=== PATIENT | male | born 1940 | race Caucasian/White ===

== ENCOUNTER 2023-07-07 06:34 | Inpatient (IN) | payer MEDICARE, BC, SELFPAY ==
--- NOTE | 2023-05-24 11:28 | CM ---
Patient is scheduled for an elective R TKR on 07/07/23. Spoke with patient prior to surgery via telephone. Introduced role of Orthopedic Navigator. Patient reports that he lives with his in a two story home. There are two steps to enter and
patient has a first floor set up. He currently functions independently. He has a cane, rolling walker and raised toilet seat. He has never had VN services. PCP is Dr. Paxton Hawkins.
Discussed orthopedic program and post surgical plans. Reviewed anticipated length of stay and that goal is for him to return home at discharge. Also reviewed outpatient PT. Patient is in agreement with tentative plan and will go directly to
outpatient PT at [facility]. He will have support from his when he goes home.
Patient will complete online education.
Plan: Orthopedic Navigator will remain available to assist with the care of patient and will reassess discharge needs after surgery.
[2023-06-21 13:33] VITALS: BMI 32.3
[2023-06-21 14:35] LABS: Hematocrit 31.8 % (39.0-52.0); Hemoglobin 10.8 g/dL (13.0-18.0); Mean Corpuscular Volume 91.4 fL (80.0-94.0); Mean Platelet Volume 12.1 fL (7.4-10.4); Platelet Count 207 10^3/uL (130-400); Red Blood Cell Count 3.48 10^6/uL (4.70-6.10); Red Cell Dist. Width 14.7 % (11.5-14.5)
[2023-06-21 14:49] LABS: Glycohemoglobin (HgbA1c) 5.9 % (4.0-5.6)
[2023-06-21 14:57] LABS: ALT (SGPT) 22 U/L (0-50); AST (SGOT) 23 U/L (17-59); Albumin 3.9 g/dl (3.5-5.0); Alkaline Phosphatase 71 U/L (38-126); Blood Urea Nitrogen 29 mg/dl (9-20); Calcium 8.8 mg/dl (8.4-10.2); Carbon Dioxide 28 mmol/L (22-30); Chloride 104 mmol/L (98-107); Estimated Creatinine Clearance 35 ml/min; Glucose 121 mg/dl (70-99); Potassium 4.2 mmol/L (3.5-5.1); Sodium 140 mmol/L (135-145); Total Bilirubin 0.5 mg/dl (0.2-1.3); eGFR 39.51
[2023-06-30 10:52] VITALS: BMI 32.3
[2023-07-07] VITALS (12 sets, daily range): BP systolic 103–156; BP diastolic 47–71; PULSE 52; O2SAT 97; BMI 32.3
[2023-07-07] MEDS: TYLENOL 650 MG PO (08:33)
[2023-07-07] MEDS: NORMOSOL-R 1000 IV (08:34)
[2023-07-07 08:37] LABS: INR 1.11; PT 14.3 Sec (11.4-14.6)
--- NOTE | 2023-07-07 11:53 | W.PN.ORTHO ---
Today's Communication / Plan
-
D/c when clinically stable.
Assessment
.
Distal Motor Intact: Yes
Dressing:
Clean, dry and intact.
Assessment:
R knee OA s/p R TKA w/ Dr Callaway 07/07/23
DVT prophylaxis - Warfarin w/ modified Lovenox bridge, b/l venous foot pumps
- Warfarin held 5 days pre-op -> will resume evening of surgery
- Lovenox 80 mg SC q12h 07/03 AM to 07/05 AM -> will order Lovenox 30 mg SC q12h post-surgery to begin AM of POD 1
- Lovenox to be continued w/ Warfarin until INR is therapeutic
- PCP (Ross) to monitor INRs upon d/c. Pt has home device he can utilize
HTN - + parameters - monitor BP
PAF and SSS - monitor on tele
- Resume Warfarin as stated above
PE and RLE DVT 2012, 2* prothrombin gene mutation - resume Warfarin/Lovenox as stated above
- Frequent and early ambulation at tolerated
- Plasma flow devices to be used upon d/c
CKD stage 3 - minimize nephrotoxins
BPH per records - monitor voids
- Start daily Flomax during admission
Anemia of chronic disease - H&H in AM
Hypercholesterolemia
Mild coronary artery disease per recent nuclear stress test, medically managed
Mild to moderate valvular disease
Venous varicosities
Left lower lobe pulmonary nodules
Colon polyps
Cholelithiasis and nephrolithiasis, asymptomatic
Hyperparathyroidism, status post subtotal parathyroidectomy
Basal cell carcinoma, right calf, status post excision
Gout
Osteopenia
Prediabetes, A1c 5.9
Obesity, BMI 32.3
Plan
.
Surgery / Date: R TKA w/ Dr Callaway 07/07/23
DVT Prophylaxis: Coumadin (w/ Lovenox bridge )
Activity:
Out of bed.
PT/OT
Discharge Plan: Home w/ Outpatient PT
Subjective
.
.:
Patient resting comfortably in PACU.
R knee pain minimal and currently well tolerated.
Denies any new significant complaints.
Vital Signs and Labs
.
Vital Signs and Labs:
Lab Results
06/21/23 13:26
06/21/23 13:26
Physical Exam
-
HEENT: No pallor, cyanosis, or jaundice. Throat clear.
NECK: Supple. No JVD.
RESPIRATORY: Lungs clear to auscultation.
CVS: Irregular irregular (rate controlled).
ABDOMEN: Soft, non-tender. No distension.
EXTREMITIES: Strength equal, no calf pain with palpation/dorsiflexion. Calves soft.
CREDIT PROCESSOR: AOx3. No focal deficits. staff radiographer grossly intact
[2023-07-07] MEDS: NSS 1000 IV (12:01)
[2023-07-07] MEDS: NORCO 5/325 1 TABLET PO ×2 (12:02→14:05)
--- NOTE | 2023-07-07 12:12 | SUR.PHASEI ---
Pt.'s HR occasionally drops down to 39. Melina MCDONALD at bedside and aware. Pt denies feeling lightheaded or dizzy. Will continue to monitor
--- NOTE | 2023-07-07 12:45 | PTCARENOTE ---
Pt arrived to [facility] [address] from PACU s/p R TKR. NV intact, R knee aquacel C/D/I, IVF infusing. Pt put on telemetry. Pt states no pain at this time. Pt oriented to call sewell and room, bed locked and in lowest position, call sewell within reach.
[2023-07-07] MEDS: DIOVAN PO (13:58)
[2023-07-07] MEDS: VITAMIN D3 (cholecalciferol) 75 MCG PO (14:04)
[2023-07-07] MEDS: FLOMAX 0.400000000000000022 MG PO (14:05)
[2023-07-07] MEDS: ZYLOPRIM 300 MG PO (14:05)
[2023-07-07] MEDS: LIDOCAINE 4% PATCH 2 PATCH TOPICAL (15:44)
[2023-07-07] MEDS: ANCEF 5 IV (17:43)
[2023-07-07] MEDS: COUMADIN 5 MG PO (17:43)
[2023-07-07] MEDS: COLACE 100 MG PO (21:11)
[2023-07-07] MEDS: LIPITOR 10 MG PO (21:11)
[2023-07-07] MEDS: DECADRON 4 MG PO (21:11)
[2023-07-07] MEDS: SENOKOT 17.1999999999999993 MG PO (21:11)
[2023-07-07] MEDS: BACTROBAN 2% OINTMENT 1 APPLIC NASAL (21:13)
[2023-07-08] MEDS: ANCEF 5 IV (02:03)
[2023-07-08] MEDS: FLUSH (NSS) 1 FLUSH IV (02:03)
[2023-07-08 03:10] VITALS: BP 146/67
[2023-07-08 05:03] LABS: Hematocrit 28.5 % (39.0-52.0); Hemoglobin 9.4 g/dL (13.0-18.0)
[2023-07-08 05:09] LABS: INR 1.19; PT 15.1 Sec (11.4-14.6)
[2023-07-08 07:10] VITALS: BP 168/71
[2023-07-08] MEDS: DIOVAN 320 MG PO (07:47)
[2023-07-08] MEDS: LOVENOX 30 MG SC (07:47)
[2023-07-08] MEDS: BACTROBAN 2% OINTMENT 1 APPLIC NASAL (07:47)
[2023-07-08] MEDS: LIDOCAINE 4% PATCH 2 PATCH TOPICAL (07:47)
[2023-07-08] MEDS: NORCO 5/325 2 TABLET PO ×2 (07:47→12:22)
[2023-07-08] MEDS: SENOKOT 17.1999999999999993 MG PO (07:48)
[2023-07-08] MEDS: ZYLOPRIM 300 MG PO (07:48)
[2023-07-08] MEDS: VITAMIN D3 (cholecalciferol) 75 MCG PO (07:48)
[2023-07-08] MEDS: VITAMIN B-12 1000 MCG PO (07:48)
[2023-07-08] MEDS: FLOMAX 0.400000000000000022 MG PO (07:48)
[2023-07-08] MEDS: COLACE 100 MG PO (07:48)
[2023-07-08] MEDS: DECADRON 4 MG PO (07:48)
[2023-07-08] MEDS: DEMADEX 10 MG PO (07:49)
--- NOTE | 2023-07-08 08:45 | CM ---
Addendum entered by Cat Manzanares 07/08/23 11:52:
Patient did well in therapy. He and his have no concerns about discharge plans.
Original Note:
Reviewed chart and held rounds with PT, OT and nursing. Patient admitted as planned for elective R TKR. Met with patient at bedside. Confirmed information previously obtained for assessment. Also discussed discharge plans. The plan is for patient to
return home at discharge. He will have support from his when he goes home. Patient will go directly to outpatient PT and will go to [facility]. He has an appointment scheduled for Wednesday, 07/08.
Patient has a rolling walker, cane and commode.
He will use [facility] pharmacy for discharge prescriptions.
Discharge plans were reviewed with patient's on 07/06.
[2023-07-08] MEDS: NEURONTIN 200 MG PO (08:55)
--- NOTE | 2023-07-08 10:18 | W.PN.ORTHO ---
Today's Communication / Plan
-
Await PT and OT recs.
D/c later today if remaining clinically stable.
Assessment
.
Distal Motor Intact: Yes
Dressing:
Clean, dry and intact.
Assessment:
R knee OA s/p R TKA w/ Dr Callaway 07/07/23
DVT prophylaxis - Warfarin w/ modified Lovenox bridge, b/l venous foot pumps
- Warfarin held 5 days pre-op -> did resume evening of surgery
- Lovenox 80 mg SC q12h 07/03 AM to 07/05 AM -> will order Lovenox 30 mg SC q12h post-surgery which began AM of POD 1
- Lovenox to be continued w/ Warfarin until INR is therapeutic
- PCP (Ross) to monitor INRs upon d/c. Pt has home device he can utilize. First INR to be drawn 07/08
R knee pain - did stress utilizing [place] more frequently (q4-6h prn) to stay ahead of pain
- Will add Gabapentin for neuropathic pain
- Will monitor during PT/OT evals
HTN - + parameters - BPs overall stable
PAF and SSS - maintaining asymptomatic sinus bradycardia on tele
- Resumed Warfarin as stated above
PE and RLE DVT 2011, 2* prothrombin gene mutation - resumed Warfarin/Lovenox as stated above
- Frequent and early ambulation at tolerated
- Plasma flow devices to be used upon d/c
CKD stage 3 - continue to minimize nephrotoxins
BPH per records - voiding appropriately w/ added Flomax during admission
- No need for Flomax upon d/c
Acute on chronic anemia (2* blood loss and CKD) - Hgb 10.8 pre-op -> 9.4 POD 1
- Pt asymptomatic and hemodynamically stable
Hypercholesterolemia
Mild coronary artery disease per recent nuclear stress test, medically managed
Mild to moderate valvular disease
Venous varicosities
Left lower lobe pulmonary nodules
Colon polyps
Cholelithiasis and nephrolithiasis, asymptomatic
Hyperparathyroidism, status post subtotal parathyroidectomy
Basal cell carcinoma, right calf, status post excision
Gout
Osteopenia
Prediabetes, A1c 5.9
Obesity, BMI 32.3
Plan
.
Surgery / Date: R TKA w/ Dr Callaway 07/07/23
DVT Prophylaxis: Coumadin (w/ Lovenox bridging )
Activity:
Out of bed.
PT/OT
Discharge Plan: Home w/ Outpatient PT
Subjective
.
.:
Patient resting comfortably in bed this AM.
Reports R knee pain w/ ambulation; however, notably did not take pain meds overnight.
Denies any new significant complaints.
Eager for potential d/c today.
Vital Signs and Labs
.
Vital Signs and Labs:
Lab Results
07/08/23 04:29
06/21/23 13:26
Temp Pulse Resp BP Pulse Ox
98.4 F 62 16 168/71 97
07/08/23 07:10 07/08/23 07:10 07/08/23 07:10 07/08/23 07:49 07/08/23 08:00
PT 15.1 Sec (11.4-14.6) H 07/08/23 04:29
INR 1.19 07/08/23 04:29
Non-invasive Hgb result: 10.3
Physical Exam
-
HEENT: No pallor, cyanosis, or jaundice. Throat clear.
NECK: Supple. No JVD.
RESPIRATORY: Lungs clear to auscultation.
CVS: S1, S2 normal. RRR.
ABDOMEN: Soft, non-tender. No distension. Obese.
EXTREMITIES: Strength equal, no calf pain with palpation/dorsiflexion. Calves soft.
BOILER SERVICE TECHNICIAN: AOx3. No focal deficits. training director grossly intact
[2023-07-08 10:42] VITALS: BP 151/66; BP 171/63; PULSE 54; O2SAT 96
[2023-07-08 11:01] VITALS: BP 151/66
--- NOTE | 2023-07-08 11:45 | W.DS.TRANS ---
DC Summary - Forms Analysis Manager
-
Discharge Instructions:
Sleep Apnea Risk Intermediate
Discharge Diagnosis/Procedures R knee OA s/p R TKA w/ Dr Callaway 07/07/23
Diet Other diet
Additional Diets Diabetic carb controlled x1 week for wound
healing/infection prevention; then resume
regular diet.
Activity As tolerated,With Walker
Driving Restrictions Not until seen by your Dr
Bathing Restrictions OK to Shower
Blood Work PT/INR through home device on 07/09/2023
, with results to primary care for further
Warfarin dose adjustments.
Other Services PT
Wound Care Dressing to be removed 1 week post-surgery.
Instructions:
Stand-Alone Forms: Total Hip/Knee Replacement D/C
Changes to Home Medications: Yes
Discharge Medications:
DC Medications w/original date entered in [facility]
allopurinol 300 mg tablet 300 mg PO DAILY 07/01/11
atorvastatin 10 mg tablet 10 mg PO HS 06/21/23
calcium 500 mg tablet 500 mg PO DAILY 06/21/23
cholecalciferol (vitamin D3) 75 mcg (3,000 unit) tablet 75 mcg PO DAILY 06/21/23
glucosamine sulfate 500 mg tablet (Glucosamine) 1,000 mg PO DAILY 06/21/23
magnesium glycinate 100 mg tablet 250 mg PO DAILY 06/21/23
mecobalamin (vitamin B12) 1,000 mcg chewable tablet 1,000 mcg PO DAILY 06/21/23
mupirocin 2 % topical ointment 1 applic intranasal BID #1 tube 06/21/23
warfarin 5 mg tablet 5 mg PO QPM 06/21/23
acetaminophen 325 mg tablet 650 mg PO Q4H PRN mild pain #60 tabs 07/08/23
dexamethasone 4 mg tablet 4 mg PO BID #5 tabs 07/08/23
docusate sodium 100 mg capsule 100 mg PO BID #30 caps 07/08/23
enoxaparin 30 mg/0.3 mL subcutaneous syringe (Lovenox) 30 mg (0.3 mL) SC Q12H #3 mL 07/08/23
gabapentin 100 mg capsule 200 mg PO BID #30 caps 07/08/23
hydrocodone 5 mg-acetaminophen 325 mg tablet 1 - 2 tab PO Q4HPRN PRN moderate-severe pain #30 tabs 07/08/23
lidocaine 4 % topical patch 2 patch topical DAILY #30 ea 07/08/23
ondansetron HCl 4 mg tablet 4 mg PO Q6H PRN nausea and vomiting #30 tabs 07/08/23
sennosides 8.6 mg tablet (Senna Laxative) 17.2 mg PO BID #30 tabs 07/08/23
torsemide 10 mg tablet 10 mg PO Q48H #0 tabs 07/08/23
valsartan 320 mg tablet 320 mg PO DAILY #0 tabs 07/08/23
Home Medication Changes
acetaminophen 325 mg tablet 650 mg PO Q4H PRN mild pain #60 tabs 07/08/23
dexamethasone 4 mg tablet 4 mg PO BID #5 tabs 07/08/23
docusate sodium 100 mg capsule 100 mg PO BID #30 caps 07/08/23
enoxaparin 30 mg/0.3 mL subcutaneous syringe (Lovenox) 30 mg (0.3 mL) SC Q12H #3 mL 07/08/23
gabapentin 100 mg capsule 200 mg PO BID #30 caps 07/08/23
hydrocodone 5 mg-acetaminophen 325 mg tablet 1 - 2 tab PO Q4HPRN PRN moderate-severe pain #30 tabs 07/08/23
lidocaine 4 % topical patch 2 patch topical DAILY #30 ea 07/08/23
ondansetron HCl 4 mg tablet 4 mg PO Q6H PRN nausea and vomiting #30 tabs 07/08/23
sennosides 8.6 mg tablet (Senna Laxative) 17.2 mg PO BID #30 tabs 07/08/23
Pending Results: No
== END 2023-07-08 12:46 | disposition home or self-care (01) | DRG 470 ==
LOC: 2 SOUTH 06:34
PROVIDERS: Physician Assistant; ADMITTING PHYSICIAN Orthopaedic Surgery; FAMILY PHYSICIAN Family Medicine
PROC: 0SRC0J9 Replacement of Right Knee Joint with Synthetic Substitute, Cemented, Open Approach (ICD-10-PCS; 2023-07-07)
DX: M17.11 Unilateral primary osteoarthritis, right knee (principal); D68.52 Prothrombin gene mutation; I12.9 Hypertensive chronic kidney disease with stage 1 through stage 4 chronic kidney disease, or unspecified chronic kidney disease; N18.30 Chronic kidney disease, stage 3 unspecified; I48.0 Paroxysmal atrial fibrillation; I49.5 Sick sinus syndrome; N40.0 Benign prostatic hyperplasia without lower urinary tract symptoms; D63.1 Anemia in chronic kidney disease; E78.00 Pure hypercholesterolemia, unspecified; I25.10 Atherosclerotic heart disease of native coronary artery without angina pectoris; E66.9 Obesity, unspecified; M85.80 Other specified disorders of bone density and structure, unspecified site; Z79.01 Long term (current) use of anticoagulants; Z86.718 Personal history of other venous thrombosis and embolism; Z86.711 Personal history of pulmonary embolism; Z68.32 Body mass index [BMI] 32.0-32.9, adult
CPT/HCPCS: 36415; 73560; 80053; 83036; 85014; 85018; 85027; 85610; 86850; 86900; 86901; 87070; 97110; 97116; 97162; 97166; 97530; 97535; C1713; C1776

== ENCOUNTER → 2024-02-04 15:21 | Outpatient (REF) | payer MEDICARE, BC, SELFPAY | LOC: RAD 15:21 | PROVIDERS: ATTENDING PHYSICIAN Nurse Practitioner Family | DX: R05.1 Acute cough (principal) | CPT/HCPCS: 71046 ==

== ENCOUNTER → 2024-02-17 07:28 | Outpatient (REF) | payer MEDICARE, BC, SELFPAY | LOC: RAD 07:28 | PROVIDERS: ATTENDING PHYSICIAN Family Medicine | DX: I10 Essential (primary) hypertension (principal); N18.32 Chronic kidney disease, stage 3b; E78.2 Mixed hyperlipidemia; I35.0 Nonrheumatic aortic (valve) stenosis; R29.898 Other symptoms and signs involving the musculoskeletal system; E21.3 Hyperparathyroidism, unspecified; N95.9 Unspecified menopausal and perimenopausal disorder; N95.8 Other specified menopausal and perimenopausal disorders; D68.52 Prothrombin gene mutation; R60.9 Edema, unspecified | CPT/HCPCS: 77080; 93922; 93925; 93970 ==